=== PATIENT | female | born 1985 | race Caucasian/White ===

== ENCOUNTER 2016-10-10 15:44 | Inpatient (IN) | payer OTHER ==
[~2016-10-10] VITALS: Ht 162.6 cm; Wt 134.6 kg
--- NOTE | 2016-10-10 16:36 | RADRPT ---
PROCEDURE: US OB biophysical profile. CLINICAL INDICATION: decreased movements , hypertension TECHNIQUE: Multiple sonographic images of the pelvis were obtained. The images were reviewed on a PACS workstation. COMPARISON: No prior studies are available for comparison. FINDINGS: There is a twin viable intrauterine gestation. Twin A Cardiac activity is present with 138 beats per minute. There is a breech presentation. The placenta is anterior. MVP = 7.7 cm Biophysical profile: movement 2/2 tone 2/2. breathing 2/2 ENRRIQUE 2/2 Total 8/8 Twin B Cardiac activity is present with 132 beats per minute. There is a breech presentation. The placenta is anterior. MVP = 9.5 cm Biophysical profile: movement 2/2 tone 2/2. breathing 2/2 ENRRIQUE 2/2 Total 8/8 RPTAT: AA . IMPRESSION: Normal biophysical profile for twin gestation . . .Pravin Mauricio MD, MD Date Time Electronically viewed and signed by .Pravin Mauricio MD, MD on 10/10/2016 16:36 .S/
--- NOTE | 2016-10-10 16:38 | RADRPT ---
PROCEDURE: US OB. CLINICAL INDICATION: Size and dates , hypertension TECHNIQUE: Multiple sonographic images of the pelvis were obtained. The images were reviewed on a PACS workstation. COMPARISON: No prior studies are available for comparison. FINDINGS: There is a twin viable intrauterine gestation. The placenta is anterior. There is no evidence for an abruption or placenta previa. BABY A Cardiac activity is present with 134 beats per minute. There is a breech presentation. Measurements were made in order to determine age. The results are as follows: BPD =9.1 cm HC =32.7 cm AC =35.0 cm FL =7.2 cm The EFW = 3380 g, 86.3%. BABY B Cardiac activity is present with 123 beats per minute. There is a breech presentation. Measurements were made in order to determine age. The results are as follows: BPD =8.8 cm HC =32.5 cm AC =35.5 cm FL =7.2 cm The EFW = 3383 g, 86.5%. Estimated gestational age of approximately 37 weeks and 1-3 days. The estimated date of delivery is 10/28/2016 and 10/30/16, based on ultrasound measurements. RPTAT: AA IMPRESSION: Twin viable intrauterine gestation of approximately 37 weeks and 1-3 days. .Pravin Mauricio MD, Date Time Electronically viewed and signed by .Pravin Mauricio MD, MD on 10/10/2016 16:38 .S/
[2016-10-10 16:44] LABS: ADD SCAN DIFF NO
--- NOTE | 2016-10-10 16:48 | RADRPT ---
PROCEDURE: US bilateral lower extremity veins. CLINICAL INDICATION: Bilateral leg pain and swelling. TECHNIQUE: Multiple longitudinal and transverse images of the bilateral lower extremity veins were obtained with acosta scale and color Doppler imaging. The common femoral vein, femoral vein, and popl iteal vein were evaluated. 2D grayscale measurements with compression sonography, color Doppler, and pulsed Doppler with augmentation. COMPARISON: No prior studies are available for comparison. FINDINGS: The bilateral common femoral, femoral and popliteal veins are normally compressible throughout. Col or flow demonstrates normal filling of the vessels. Normal waveforms are visualized and there is no rmal response to augmentation. IMPRESSION: 1. No evidence of deep vein thrombosis involving either lower extremity. RPTAT: QQ .Nicholas Barboza MD, MD Date Time Electronically viewed and signed by .Nicholas Barboza MD, on 10/10/2016 16:48 .R/
[2016-10-10 16:51] LABS: ABNORMAL IP MESSAGE 1; HEMATOCRIT 34.6 % (37.0-47.0); HEMOGLOBIN 11.4 g/dl (12.0-16.0); MEAN CORPUSCULAR HGB CONC 32.9 g/dl (32.0-37.0); MEAN CORPUSCULAR VOLUME 81.8 fl (82.0-101.0); MEAN PLATELET VOLUME 13.2 fl (7.4-10.4); PLATELET COUNT 122 10^3/UL (140-415); RED BLOOD COUNT 4.23 10^6/ul (4.20-5.40); WHITE BLOOD COUNT 7.3 10^3/ul (4.8-10.8)
[2016-10-10 17:06] LABS: ADD UMIC NO; UR ASCORBIC ACID NEGATIVE (NEGATIVE); UR BILIRUBIN (Dip) NEGATIVE (NEGATIVE); UR BLOOD (Dip) NEGATIVE (NEGATIVE); UR CLARITY CLEAR (CLEAR); UR COLOR STRAW (YELLOW); UR GLUCOSE (Dip) NEGATIVE (NEGATIVE); UR KETONES (Dip) NEGATIVE (NEGATIVE); UR LEUKOCYTE ESTERASE (Dip) NEGATIVE Leu/ul (NEGATIVE); UR NITRITE (Dip) NEGATIVE (NEGATIVE); UR SPECIFIC GRAVITY (Dip) 1.008 (1.003-1.030); UR TOTAL PROTEIN (Dip) NEGATIVE (NEGATIVE); UR UROBILINOGEN (Dip) NEGATIVE (NEGATIVE)
[2016-10-10 17:07] LABS: ALBUMIN 3.7 g/dl (3.3-4.9); ALBUMIN/GLOBULIN RATIO 1.32; BILIRUBIN,INDIRECT 0.1 mg/dl (0-1.1); BILIRUBIN,TOTAL 0.1 mg/dl (0.2-1.3); CALCIUM 9.3 mg/dl (8.4-10.2); CREATININE 0.68 mg/dl (0.44-1.00); TOTAL PROTEIN 6.5 g/dl (6.1-8.1); URIC ACID 6.4 mg/dl (3.1-7.9)
[2016-10-10 17:12] LABS: INR 0.91; PROTIME 12.3 Sec (12.2-14.2)
[2016-10-10 17:13] LABS: PARTIAL THROMBOPLASTIN TIME 29.1 Sec (25.0-35.0)
[2016-10-10 17:26] LABS: BARBITURATES Negative (NEGATIVE); BENZODIAZEPINES Negative (NEGATIVE); CANNABINOIDS Negative (NEGATIVE); COCAINE Negative (NEGATIVE); OPIATES Negative (NEGATIVE)
[2016-10-10 17:29] LABS: EOSINOPHILS # 0.2 10^3/ul (0.0-0.5); LYMPHOCYTES # 1.8 10^3/ul (0.8-2.9); MONOCYTE # 0.3 10^3/ul (0.3-0.9)
[2016-10-10 17:47] VITALS: BP 125/77; PULSE 93; RESP 18; Ht 162.6 cm; Wt 134.6 kg
[2016-10-10] MEDS ORDERED: MAGNESIUM SULFATE 4 GM/100 ML 100 ML IV SCH (23:30)
[2016-10-10] MEDS ORDERED: MAGNESIUM SULFATE 20 GM/500 ML 500 ML IV SCH (23:30)
[2016-10-10] MEDS ORDERED: CARBOPROST 250 MCG INJ IM PRN (23:30)
[2016-10-10] MEDS ORDERED: LACTATED RINGER'S 1,000 ML IV PRN (23:30)
[2016-10-10] MEDS ORDERED: CEFAZOLIN 2 GM/50 ML (PMX) 50 ML IV ONE (23:30)
[2016-10-10] MEDS ORDERED: MISOPROSTOL 200 MCG TAB PR PRN (23:30)
[2016-10-10] MEDS ORDERED: OXYTOCIN 30 UNITS/LR 500 ML IV PRN (23:30)
[2016-10-10] MEDS ORDERED: CEFAZOLIN 2 GM/50 ML (PMX) 50 ML IVPB ONE (23:30)
[2016-10-10] MEDS ORDERED: METHYLERGONOVINE 0.2 MG INJ IM PRN (23:30)
[2016-10-11] VITALS (13 sets, daily range): BP systolic 98–129; BP diastolic 55–81; PULSE 79–106; RESP 16–20
[2016-10-11] MEDS: LACTATED RINGER'S 1,000 ML IV SCH ×5 (00:51→23:10)
[2016-10-11] MEDS ORDERED: morphine SULFATE/PF (10 MG/10 ML) INJ ONE (05:30)
[2016-10-11] MEDS ORDERED: PHENYLephrine (100 MCG/ML) 5ML SYG ONE ×5 (05:32→06:41)
--- NOTE | 2016-10-11 05:35 | HP ---
Date/Time of Note Date/Time of Note DATE: 10/11/16 TIME: 05:20 Assessment/Plan VTE Prophylaxis VTE Prophylaxis Intervention: SCD's Lines/Catheters IV Catheter Type (from Nrs): Peripheral IV Assessment/Plan Assessment/Plan 30 yo iup at 36 wks 5 days ga, twin gestation, in labor, preeclampsia with severe feature, limited care, previous CD X 2, desire elective repeat CD with tubal sterilization. consent for repeat cd with bilateral tubal ligation. r/b/a explained seizure prophylaxis HPI/ROS Admit Date/Time Admit Date/Time Oct 10, 2016 at 18:10 Hx of Present Illness 30 yo edc 11/02/2016 iup at 36 wks 5 days ga, twin gestation, complaining of ctx and headache. patient observed to have elevated blood pressures. denies epigastric pain, visual changes, or n/v. ROS obese Constitutional: improved, no complaints Eyes: pain ENT: no complaints, No bleeding, No congestion, No discharge, No dysphagia, No other, No pain, No sore throat Respiratory: no complaints Cardiovascular: no complaints, No chest pain, No edema, No lightheadedness, No orthopenea, No other, No palpitations, No paroxysmal nocturnal dyspnea Gastrointestinal: no complaints, No blood, No constipation, No decreased appetite, No diarrhea, No flatus, No nausea, No other, No pain, No passing stool, No vomiting Genitourinary: no complaints, No bleeding, No discharge, No dysuria, No flank pain, No hematuria, No other Musculoskeletal: no complaints, No back pain, No bone/joint pain, No neck pain, No other, No restricted range of motion, No swelling Skin: no complaints, No bruising, No erythema, No laceration, No other, No pruritis, No rash, No skin lesions Neurologic: no complaints, No confusion, No dizziness, No focal-weakness, No headache, No other, No seizure, No syncope Endocrine: no complaints, No dry skin, No other, No polydypsia, No polyuria, No temp intolerance, No weight change Lymphatic: no complaints, No adenopathy, No lymphadema, No other, No tender nodes Psychological: anxiety, confusion, depression, nl mood/affect, no complaints, other (bipolar), suicidal Immunologic: no complaints, No immunodeficiency, No other, No pruritis, No rhinitis, No urticaria PMH/Family/Social Past Medical History obese Past Surgical History X 2 CD Family History Significant Family History: no pertinent family hx Social History Alcohol Use: none Smoking Status: Unknown if ever smoked Drug Use: none Exam/Review of Systems Vital Signs Vitals Vital Signs Date Time Temp Pulse Resp B/P Pulse Ox O2 Delivery O2 Flow Rate FiO2 10/10/16 17:47 98.4 93 18 125/77 Room Air Intake and Output 10/10/16 10/10/16 10/11/16 15:00 23:00 07:00 Intake Total 325 ml Output Total 700 ml Balance -375 ml Exam Constitutional: alert, oriented, well developed Psych: anxiety (bipolar) Head: atraumatic, normocephalic ENMT: nl external ears & nose, nl lips & teeth, nl nasal mucosa & septum Neck: non-tender, supple Respiratory: clear to auscultation, normal air movement Cardiovascular: nl pulses, regular rate and rhythm Gastrointestinal: nl liver, spleen, non-tender, soft Labs Result Diagram: 10/10/16 1617 10/10/16 1617 Medications Medications Current Medications Lactated Ringer's 1,000 ml @ 75 mls/hr [id number] IV Last administered on 00:51; Admin Dose 75 MLS/HR; Start 10/10/16 at 18:30 Lactated Ringer's 1,000 ml @ 2,000 mls/hr Q30M PRN IV PRE-EPIDURAL BOLUS; Start 10/10/16 at 23:30 Oxytocin/Lactated Ringer's 500 ml @ 0 mls/hr ONCE PRN IV For Hemorrhage Management; Start 10/10/16 at 23:30 Methylergonovine Maleate (Methergine) 0.2 mg ONCE PRN IM VAGINAL BLEEDING; Start 10/10/16 at 23:30 Carboprost Tromethamine (Hemabate) 250 mcg ONCE PRN IM VAGINAL BLEEDING; Start 10/10/16 at 23:30 Misoprostol 1000 mcg 1,000 mcg ONCE PRN ME VAGINAL BLEEDING; Start 10/10/16 at 23:30 Magnesium Sulfate (Magnesium Sulfate 20 Gm/500 ml) 500 ml @ 50 mls/hr Q10H IV Last administered on 10/11/16 01:34; Admin Dose 50 MLS/HR; Start 10/10/16 at 23 :30 Procedures Procedures repeat CD and bilateral tubal ligation BREA JOHNS MD Oct 11, 2016 05:32
[2016-10-11] MEDS ORDERED: ONDANSETRON 4 MG INJ ONE (05:49)
[2016-10-11] MEDS ORDERED: KETOROLAC 30 MG INJ IV ONE (06:30)
[2016-10-11] MEDS ORDERED: METOCLOPRAMIDE 10 MG INJ IV PRN (06:30)
[2016-10-11] MEDS ORDERED: ONDANSETRON 4 MG INJ IV PRN ×2 (06:30)
[2016-10-11] MEDS ORDERED: PROCHLORPERAZINE 10 MG INJ IV PRN (06:30)
[2016-10-11] MEDS ORDERED: FENTAnyl 50 MCG/ML VIAL IV PRN ×2 (06:30)
[2016-10-11] MEDS ORDERED: ALBUTEROL 0.083% (NEB) 2.5 MG/3 ML AMP HHN ONE (06:30)
[2016-10-11] MEDS ORDERED: DIPHENHYDRAMINE 50 MG INJ IV PRN ×2 (06:30)
[2016-10-11] MEDS ORDERED: MEPERIDINE 25 MG INJ IV PRN (06:30)
[2016-10-11] MEDS ORDERED: NALOXONE (0.4 MG/ML) INJ IV PRN (06:30)
[2016-10-11] MEDS ORDERED: HYDROmorphONE (0.2 MG/ML) 10ML SYG IV PRN ×3 (06:30)
[2016-10-11] MEDS ORDERED: HYDROmorphONE 1 MG/ML SYG IV PRN ×2 (06:30)
[2016-10-11] MEDS ORDERED: MISOPROSTOL 200 MCG TAB PR PRN (07:30)
[2016-10-11] MEDS ORDERED: OXYCODONE/ACETAMINOPHEN (5/325) TAB PO PRN (07:30)
[2016-10-11] MEDS ORDERED: CARBOPROST 250 MCG INJ IM PRN (07:30)
[2016-10-11] MEDS ORDERED: OXYTOCIN 30 UNITS/LR 500 ML IV PRN (07:30)
[2016-10-11] MEDS ORDERED: LANOLIN 7 GM TUBE TOP PRN (07:30)
[2016-10-11] MEDS ORDERED: CA GLUCONATE (GM) 10% 10ML INJ IV PRN (07:30)
[2016-10-11] MEDS ORDERED: OXYTOCIN 30 UNITS/LR 500 ML IV SCH (07:30)
[2016-10-11] MEDS ORDERED: CEFAZOLIN 2 GM/50 ML (PMX) 50 ML IV SCH (07:30)
[2016-10-11] MEDS: MAGNESIUM SULFATE 20 GM/500 ML 500 ML IV SCH ×2 (07:40→16:51)
[2016-10-11] MEDS: SENNA/DOCUSATE NA (8.6MG/50MG) TAB PO SCH ×2 (09:00→21:55)
[2016-10-11] MEDS: CEFAZOLIN 2 GM/50 ML (PMX) 50 ML IVPB SCH ×2 (11:46→21:55)
[2016-10-11] MEDS: IBUPROFEN 600 MG TAB PO SCH ×2 (12:00→18:00)
[2016-10-11] MEDS: OXYTOCIN 30 UNITS/LR 500 ML IV SCH ×2 (14:03→20:56)
[2016-10-11] MEDS: KETOROLAC 30 MG INJ IV PRN ×2 (15:51→21:55)
[2016-10-12] VITALS (10 sets, daily range): BP systolic 101–129; BP diastolic 57–88; PULSE 80–95; RESP 18–20
[2016-10-12] MEDS: MAGNESIUM SULFATE 20 GM/500 ML 500 ML IV SCH (02:55)
[2016-10-12] MEDS: CEFAZOLIN 2 GM/50 ML (PMX) 50 ML IVPB SCH (04:02)
[2016-10-12] MEDS: IBUPROFEN 600 MG TAB PO SCH ×5 (06:49→23:46)
[2016-10-12] MEDS: LACTATED RINGER'S 1,000 ML IV SCH ×2 (06:51→15:10)
[2016-10-12 08:50] LABS: ADD SCAN DIFF NO
--- NOTE | 2016-10-12 08:57 | CONS ---
Date/Time of Note Date/Time of Note DATE: 10/12/16 TIME: 08:55 Consultation Date/Type/Reason Admit Date/Time Oct 10, 2016 at 18:10 Initial Consult Date 10/11/16 Type of Consultation: Anesthesiology Reason for Consultation Follow up 24 HR Interval Summary Free Text/Dictation Pt seen and examined is POD#1 s/p repeat C/S with BTL. Pt received spinal Duramorph injection or post op pain control. She is currently doing well with adequate pain control. She complains of some N/V but denies D/C/BAR/Numbness in extremities. Will continue to follow. Constitutional: improved, no complaints Exam/Review of Systems Vital Signs Vitals Vital Signs Date Time Temp Pulse Resp B/P Pulse Ox O2 Delivery O2 Flow Rate FiO2 10/12/16 06:00 83 20 118/60 Room Air 10/12/16 04:07 98.5 Intake and Output 10/11/16 10/11/16 10/12/16 15:00 23:00 07:00 Intake Total 975 ml 1000 ml 775 ml Output Total 1300 ml 900 ml 1800 ml Balance -325 ml 100 ml -1025 ml Results Result Diagram: 10/10/16 1617 10/10/16 1617 Results 24 hrs Laboratory Tests Test 10/11/16 11:57 10/11/16 17:50 10/12/16 00:53 Magnesium Level 4.1 H 4.8 H 5.2 *H Medications Medications Current Medications Methylergonovine Maleate 0.2 mg 0.2 mg ONCE PRN IM VAGINAL BLEEDING; Start 10/10 at 23:30 Lactated Ringer's (Lr) 1,000 ml @ 125 mls/hr Q8H IV ; Start 10/11/16 at 07:10 Oxycodone/ Acetaminophen (Percocet (5/ 325)) 1 tab Q4H PRN PO PAIN LEVEL 4-6; Start 10/11/16 at 07:30 Oxycodone/ Acetaminophen (Percocet (5/ 325)) 2 tab Q4H PRN PO PAIN LEVEL 7-10; Start 10/11/16 at 07:30 Ibuprofen (Motrin) 600 mg Q6 PO Last administered on 10/12/16t 06:49; Admin Dose 600 MG; Start 10/11/16 at 12:00 Simethicone (Mylicon) 160 mg Q8H PRN PO DISTENSION/GAS/BLOATING; Start at 07:30 Senna/Docusate Sodium 1 tab 1 tab BID PO Last administered on 10/11/16 21:55; Admin Dose 1 TAB; Start 10/11/16 at 09:00 Oxytocin/Lactated Ringer's 500 ml @ 0 mls/hr ONCE PRN IV For Hemorrhage Management; Start 10/11/16 at 07:30 Carboprost Tromethamine (Hemabate) 250 mcg ONCE PRN IM VAGINAL BLEEDING; Start 10/11/16 at 07:30 Misoprostol (Cytotec) 1,000 mcg ONCE PRN MD VAGINAL BLEEDING; Start 10/11/16 at 07:30 Calcium Gluconate 1 gm 1 gm ONCE PRN IV FOR MAGNESIUM TOXICITY; Start 10/11/16 at 07:30 Oxytocin/Lactated Ringer's 500 ml @ 125 mls/hr ONCE IV Last administered on 07:41; Admin Dose 125 MLS/HR; Start 10/11/16 at 07:30 YANNI PATTEN Oct 12, 2016 08:56
[2016-10-12 09:00] LABS: ABNORMAL IP MESSAGE 1; BASOPHILS % 0.2 % (0.0-2.0); EOSINOPHILS # 0.1 10^3/ul (0.0-0.5); HEMATOCRIT 33.1 % (37.0-47.0); HEMOGLOBIN 10.7 g/dl (12.0-16.0); LYMPHOCYTES # 0.9 10^3/ul (0.8-2.9); LYMPHOCYTES % 11.5 % (15.0-51.0); MEAN CORPUSCULAR HEMOGLOBIN 26.7 pg (29.0-33.0); MEAN CORPUSCULAR HGB CONC 32.3 g/dl (32.0-37.0); MEAN CORPUSCULAR VOLUME 82.5 fl (82.0-101.0); MEAN PLATELET VOLUME 13.1 fl (7.4-10.4); MONOCYTE # 0.4 10^3/ul (0.3-0.9); MONOCYTES % 5.2 % (0.0-11.0); NEUTROPHIL # 6.6 10^3/ul (1.6-7.5); NEUTROPHILS % 81.7 % (39.0-77.0); PLATELET COUNT 108 10^3/UL (140-415); RED BLOOD COUNT 4.01 10^6/ul (4.20-5.40); RED CELL DISTRIBUTION WIDTH 14.4 % (11.5-14.5); WHITE BLOOD COUNT 8.1 10^3/ul (4.8-10.8)
[2016-10-12] MEDS: SENNA/DOCUSATE NA (8.6MG/50MG) TAB PO SCH ×2 (10:17→21:20)
--- NOTE | 2016-10-12 18:31 | OPR ---
Operative Report Planned Procedure Free Text/Dictation PREOPERATIVE DIAGNOSIS: 30 yo Intrauterine at 36 weeks 6 days gestational age, Twin gestation, labor, pre-eclampsia with severe features, limited care, previous delivery x2, multiparous, desires elective repeat delivery with bilateral tubal sterilization. POSTOPERATIVE DIAGNOSIS: Same. Retained IUD OPERATION PERFORMED: Repeat low transverse delivery with bilateral tubal ligation, modified [place] method , IUD removal SURGEON: Jc Ashford MD. INSULATING MACHINE OPERATOR: Dr. Hyde ANESTHESIA: Spinal. COMPLICATIONS OF PROCEDURE: None. ESTIMATED BLOOD LOSS: 500 mL. FINDINGS: Baby A: A viable female, 8 and 9 respectively at 1 and 5 minutes sourav breech presentation. Weight 6lbs 5 oz . Baby B: A viable female, 8 and 9 respectively at 1 and 5 minutes vtx presentation. Weight 5lbs 13 oz . Pathology: portion of right and left fallopian tube. placenta, IUD DESCRIPTION OF PROCEDURE: After explaining the risks, benefits and alternatives , the patient and consent signed in chart, the patient was taken to the operating room where spinal anesthesia was found to be adequate. She was then prepared and draped in normal sterile fashion in dorsal supine position with a leftward tilt. A Pfannenstiel skin incision was then made with a scalpel and carried to the underlying layer of fascia. The fascia was incised in the midline and incision was extended laterally with Ware scissors. The superior aspect of the fascial incision was grasped with curved clamps, elevated and the underlying rectus muscles dissected off bluntly. Attention was then turned to the inferior aspect of the incision, which in similar fashion was grasped, tented up with curved clamps and the rectus muscles dissected off bluntly. The rectus muscles were then in midline, peritoneum identified, tented up with Metzenbaum scissors. The peritoneal incision was extended superiorly, inferiorly with good visualization of bladder. . At this point, the bladder blade was then inserted and the vesicouterine peritoneum identified, grasped with pickups and entered sharply with Metzenbaum scissors. This incision was extended laterally and the bladder flap created digitally. The bladder blade was then reinserted and was incised in transverse fashion with a scalpel. The uterine incision was extended laterally. The bladder blade was removed and the Baby A buttock was delivery to the level of the scapula. rotated 180 degree and the right arm was flipped across the chest and delivered. Similarly the left arm was flippled across the chest and delivered, the head was delivered atraumatically. The nose and mouth were suctioned and cord clamped and cut. The infant was handed off to awaiting switchboard troubleshooter. Baby B head delivered atraumatically. The nose and mouth were suctioned and cord clamped and cut. The was handed off to awaiting switchboard troubleshooter. The placenta was then removed. The uterus was exteriorized and cleared of all clots and debris. The IUD was also removed from the endometrium and sent to pathology. The uterine incision was repaired with 1-0 chromic in a running locked fashion. A second layer of same suture was used for imbrication obtaining excellent hemostasis. At this point, a Lizz clamp was used to grasp the left tube approximately 4 cm from the cornual region. A 3 cm segment of tube was ligated with a free tie of plain gut and excised. Good hemostasis was noted. Similarly, the right fallopian tube was excised. The uterus was returned to the abdomen. The gutters were cleared of all clots. Good hemostasis was assured from the tubal ligation site. The peritoneum was reapproximated with 2-0 plain gut in interrupted fashion. The fascia was reapproximated with 0 Vicryl in a running fashion. The subcutaneous tissue was reapproximated with 2-0 plain gut in a running fashion. The skin was closed with ethan. The patient tolerated procedure well. Sponge, lap and needle counts correct x2. The patient was taken to recovery room in stable condition. Procedure date Oct 11, 2016 Procedure Description Under satisfactory [] anesthesia, the patient was prepped and draped and placed in a supine position, tilted to the left. Pfannenstiel incision was made, carried through the subcutaneous tissue. Bleeders brought under control with electrocautery. Fascia incised to the length of the incision. Rectus muscles from the fascia, divided midline. Peritoneum exposed, entered through a transverse incision. Exploration of abdomen revealed gravid uterus. Bladder flap was developed. Transverse incision was made in the lower segment of the uterus. Amniotic sac ruptured. [] amniotic fluid noted. [] Nasal oropharyngeal suction was performed. The baby was handed to the team for immediate attention. The placenta was delivered manually intact. Uterine cavity was cleaned with wet sponge and drainage established. Uterus closed in 2 layers using [] in continuous fashion. Peritoneal cavity irrigated with warm saline. Sponge, needle and instrument count reported to be correct. Abdominal peritoneum closed with [] continuously. Rectus muscle approximated with []. Fascia closed with [], and skin closed with ethan. Estimated blood loss []mL. Urine bag contained []mL of urine Post-Procedure Findings: Live Baby [], Apgars [] and [], weight [], position [], [] presentation []cord. Physician Certification I, the undersigned physician, hereby certify that I have discussed the procedure described in this consent form with this patient (or the patient's legal call center support representative), including: * The risk and benefits of the procedure; * Any adverse reactions that may reasonably be expected to occur; * Any alternative efficacious methods of treatment which may be medically viable ; * The potential problems that may occur during recuperation; * Potential for blood transfusion and associated risks/benefits; and * Any research or economic interest I may have regarding this treatment. I further certify that the patient/legally responsible person was encouraged to ask question and that all questions were answered. JC ASHFORD MD Oct 12, 2016 18:31
--- NOTE | 2016-10-12 21:50 | QN ---
Documentation Comment patient seen and evaluated no complaints vs stable afebrile ad obese soft nt dressing clean extremity no edema no calf tenderness a/ s/p r cd pod 1 mgso completed secondary to preeclampsia p/ preclamptic precaution repeat cbc in am iron supplement BREA JOHNS MD Oct 12, 2016 21:50
[2016-10-13] MEDS: OXYCODONE/ACETAMINOPHEN (5/325) TAB PO PRN ×4 (01:13→20:50)
[2016-10-13 04:00] VITALS: BP 142/72; PULSE 85; RESP 18
[2016-10-13] MEDS: IBUPROFEN 600 MG TAB PO SCH ×4 (05:53→23:44)
[2016-10-13 08:33] LABS: ADD SCAN DIFF NO
[2016-10-13 08:41] LABS: BASOPHILS % 0.3 % (0.0-2.0); EOSINOPHILS # 0.2 10^3/ul (0.0-0.5); HEMATOCRIT 31.3 % (37.0-47.0); HEMOGLOBIN 9.9 g/dl (12.0-16.0); LYMPHOCYTES # 1.8 10^3/ul (0.8-2.9); LYMPHOCYTES % 20.3 % (15.0-51.0); MEAN CORPUSCULAR HEMOGLOBIN 26.5 pg (29.0-33.0); MEAN CORPUSCULAR HGB CONC 31.6 g/dl (32.0-37.0); MEAN CORPUSCULAR VOLUME 83.9 fl (82.0-101.0); MEAN PLATELET VOLUME 12.8 fl (7.4-10.4); MONOCYTE # 0.5 10^3/ul (0.3-0.9); NEUTROPHIL # 6.2 10^3/ul (1.6-7.5); NEUTROPHILS % 70.5 % (39.0-77.0); PLATELET COUNT 119 10^3/UL (140-415); RED BLOOD COUNT 3.73 10^6/ul (4.20-5.40); RED CELL DISTRIBUTION WIDTH 14.8 % (11.5-14.5); WHITE BLOOD COUNT 8.8 10^3/ul (4.8-10.8)
[2016-10-13] MEDS: FERROUS SULFATE (EC) 325 MG TAB PO SCH ×2 (08:41→20:50)
[2016-10-13] MEDS: SENNA/DOCUSATE NA (8.6MG/50MG) TAB PO SCH ×2 (08:41→20:50)
[2016-10-13 16:00] VITALS: PULSE 86
--- NOTE | 2016-10-13 19:56 | QN ---
Documentation Comment patient seen and evaluated no complaints no headach, n/v, sob, visual changes vs stable afebrile ad obese soft nt dressing c/d/i no distention extremity no edema no calf tenderness a/ s/p r cd pod 2 stable afebrile p/ preclamptic precaution discharge home tomorrow BREA JOHNS MD Oct 13, 2016 19:56
--- NOTE | 2016-10-13 19:58 | PD.PPDC ---
ELECTRICAL SYSTEM SPECIALIST Discharge Instruction Condition Patient Condition: Fair Diet Diet: Resume Regular Diet Activity/Restrictions Activity: Normal Activity May Shower Restrictions: No Exercising No Lifting No Driving No Sexual Activity Nothing in the Vagina No [place] No Tampons, douche Wound/Drain Care Instructions Wound/Drain Care Instructions: Wash with soap and water Keep clean and dry Follow-up Follow-up with Physician: 3, Day/Days Provider Information: f/u in office to remove ethan this tues Return to clinic for [facility] Instructions: Fever greater than 101 Chills Worsening abdominal pain Excessive Vaginal Bleeding More than 2 pads per hour Unable to tolerate diet OB Instructions: Breast Tenderness Depression Blurried Vision Headache Comment: strict preeclamptic precautions Surgical Instructions: Incisional Drainage Incisional Redness BREA JOHNS MD Oct 13, 2016 19:57
[2016-10-13 20:00] VITALS: BP 127/85; PULSE 81; RESP 20
--- NOTE | 2016-10-13 20:00 | DS ---
Date/Time of Note Date/Time of Note DATE: 10/13/16 TIME: 19:59 Obstetrical Discharge Record Final Diagnosis Final Diagnosis: not delivered Other Final Diagnosis 36 wks twin ga, ptl, preeclampsia Vaginal Delivery Obstetrical Delivery: Bilateral Tubal Ligation Section Section: Repeat Condition on Discharge Physical Assessment Voiding: Yes Bowel Movement: Yes Breast: Soft, non-tender, Filling Fundus: Firm Abdomen and Incision: c/d/i no distention, no epigastric pain Calf Tenderness: No Patient Condition: BREA Aguilar MD Oct 13, 2016 20:00
[2016-10-14 04:00] VITALS: BP 133/72; PULSE 82; RESP 20
[2016-10-14] MEDS: IBUPROFEN 600 MG TAB PO SCH ×3 (05:41→17:43)
[2016-10-14] MEDS: SENNA/DOCUSATE NA (8.6MG/50MG) TAB PO SCH (08:17)
[2016-10-14] MEDS: FERROUS SULFATE (EC) 325 MG TAB PO SCH (08:17)
[2016-10-14] MEDS: OXYCODONE/ACETAMINOPHEN (5/325) TAB PO PRN ×2 (08:17→13:38)
[2016-10-14 08:20] VITALS: BP 122/71; PULSE 87; RESP 18
--- NOTE | 2016-10-17 15:12 | HP ---
DATE OF ADMISSION: 10/10/2016 HISTORY OF PRESENT ILLNESS: The patient is a 30-year-old with intrauterine at 36 weeks, presented to hospital for elevated blood pressure in the office. She states good movement. She denies nausea or vomiting, shortness of breath, chest pain, visual changes, abdominal pain, headache, vaginal bleeding, leakage of fluid, urinary or GI symptoms. She states good movement. PHYSICAL EXAMINATION: VITAL SIGNS: Blood pressure 130/76, pulse rate 80 per minute, respiratory rate 18 per minute, temperature 98.1. GENERAL APPEARANCE: Comfortable, no acute distress, appropriate mood and affect. HEART: Regular rhythm and rate. No murmur. LUNGS: Clear to auscultation bilaterally. ABDOMEN: Soft, nontender. Uterine fundal height 36 weeks. FLANK: No CVA tenderness bilateral. EXTREMITIES: Mild edema. No varicose veins, thigh or calf tenderness bilateral. Homans sign is negative. HEART RATE: 140 bpm, moderate variability with acceleration, no deceleration. UTERINE CONTRACTIONS: None. ASSESSMENT AND PLAN: A 30-year-old with single intrauterine at 36 weeks, presents for further evaluation as her blood pressure in the office was elevated. All of her blood pressures during 3 hours observation were normal. Labs performed which were within normal limits. Signs and symptoms of preeclampsia, labor, kick count discussed in detail with patient. She expressed understanding. All of her questions were answered. She is discharged home in stable condition with follow up with her primary OB in 2 days to recheck a blood pressure. Dictated By: Vanessa Hyde MD /[email or web address]/melony /Document#: [id number] [place]
== END 2016-10-14 18:20 | disposition home or self-care (01) | DRG 765 ==
LOC: OBT 15:44 → L-D 16:05 → OBT 18:10 → OBG 18:10 → L-D 10-11 00:36 → PP1 10-11 09:51
PROVIDERS: ADMIT Obstetrics & Gynecology; ATTEND Obstetrics & Gynecology
PROC: 10D00Z1 Extraction of Products of Conception, Low, Open Approach (ICD-10-PCS; principal; 2016-10-11)
PROC: 0UL70ZZ Occlusion of Bilateral Fallopian Tubes, Open Approach (ICD-10-PCS; 2016-10-11)
DX: O60.14X2 Preterm labor third trimester with preterm delivery third trimester, fetus 2 (principal); Z68.43 Body mass index [BMI] 50.0-59.9, adult; O30.003 Twin pregnancy, unspecified number of placenta and unspecified number of amniotic sacs, third trimester; O99.214 Obesity complicating childbirth; Z37.2 Twins, both liveborn; O14.14 Severe pre-eclampsia complicating childbirth; O34.211 Maternal care for low transverse scar from previous cesarean delivery; E66.01 Morbid (severe) obesity due to excess calories; Z30.2 Encounter for sterilization; Z3A.36 36 weeks gestation of pregnancy
CPT/HCPCS: 76815; 76818; 80053; 80307; 81003; 83735; 84560; 85025; 85384; 85610; 85730; 86592; 86900; 86901; 88300; 88302; 88307; 93970; 99464; A4310; G0463; J0690; J0780; J1170; J1885; J2274; J2370; J2405; J2590; J3475; J7120